=== PATIENT | female | born 1945 | race Native Hawaiian/Other Pacific Islander ===

== ENCOUNTER 2019-01-01 09:28 | Outpatient (CLI) | payer OTHER ==
[2019-01-01] MEDS ORDERED: LEVEMIR FL100 UNIT/M SC (10:43)
[2019-01-01] MEDS ORDERED: ENALAPRIL10 MG PO (10:43)
[2019-01-01] MEDS ORDERED: FLUTMIS2 INH (10:44)
[2019-01-01] MEDS ORDERED: GLIM4TAB PO (10:44)
[2019-01-01] MEDS ORDERED: PROAIR HFA INH (10:45)
[2019-01-01] MEDS ORDERED: FURO20TA67 PO (10:45)
[2019-01-01] MEDS ORDERED: ZIPR80CA PO (10:46)
[2019-01-01] MEDS ORDERED: SERT50TA PO (10:47)
[2019-01-01] MEDS ORDERED: TRAZODONE HYDRO50 MG PO (10:48)
[2019-01-01] MEDS ORDERED: BENZ1TAB43 PO (10:48)
[2019-01-01] MEDS ORDERED: PRED20TA27 PO (10:49)
[2019-01-01] MEDS ORDERED: VITAMIN PO (10:49)
== END 2019-01-01 09:31 | disposition short-term general hospital (02) ==
LOC: AMB 09:28
DX: R06.89 Other abnormalities of breathing (principal); R06.2 Wheezing
CPT/HCPCS: A0425; A0427

== ENCOUNTER 2019-01-01 09:34 | Inpatient (IN) | payer OTHER ==
[2019-01-01] VITALS (12 sets, daily range): BP systolic 125–172; BP diastolic 44–76; TEMP 98.1–98.9; Ht 154.9 cm; Wt 66.9 kg
[~2019-01-01] VITALS: Ht 154.9 cm; Wt 66.9 kg
[2019-01-01 10:02] LABS: PLATELET COUNT 223 K/uL (152-353)
[2019-01-01 10:11] LABS: POTASSIUM 4.4 mmol/L (3.6-5.2); SODIUM 140 mmol/L (136-145)
[2019-01-01] MEDS ORDERED: ENALAPRIL10 MG PO (10:43)
[2019-01-01] MEDS ORDERED: LEVEMIR FL100 UNIT/M SC (10:43)
[2019-01-01] MEDS ORDERED: GLIM4TAB PO (10:44)
[2019-01-01] MEDS ORDERED: FLUTMIS2 INH (10:44)
[2019-01-01] MEDS ORDERED: FURO20TA67 PO (10:45)
[2019-01-01] MEDS ORDERED: PROAIR HFA INH (10:45)
[2019-01-01] MEDS ORDERED: ZIPR80CA PO (10:46)
[2019-01-01] MEDS ORDERED: SERT50TA PO (10:47)
[2019-01-01] MEDS ORDERED: TRAZODONE HYDRO50 MG PO (10:48)
[2019-01-01] MEDS ORDERED: BENZ1TAB43 PO (10:48)
[2019-01-01] MEDS ORDERED: VITAMIN PO (10:49)
[2019-01-01] MEDS ORDERED: PRED20TA27 PO (10:49)
--- NOTE | 2019-01-01 14:58 | NUR ---
ERICK RIVERA CALLED AND PT'S HX OBTAINED OVER PHONE. [facility] [place] CALL[facility]. PT HAS MR AND MOOD DISORDER PER PERSON GIVING HX. PT AWAKE AND ALERT AT TIME OF ADMISSION FROM ER. PT ASSISTED TO BED FROM [facility]. PT NOTED TO BE AUDIBLE WHEEZING . DR FORD AT BS AT THIS TIME. PT BREATHING NOTED TO BE LABORED. SATS ON RA 96%. NEW ORDERS REC'D TO GIVE SOLUMEDROL 125MG IVP STAT. WILL CON'T TO [facility]
--- NOTE | 2019-01-01 21:00 | NUR ---
Pt was assisted to bsc and had large bowel movement. Pt has audible wheezing noted. O2 sat is checked and found to be 95% on room air. Respiratory has checked on pt and duonebs were administered. PRN Tylenol, 650 mg, po was also administered d/t pt stated "that she was hurting all over her body". Pt also stated that she was hot and perspiring, and her gown was saturated. Gown was changed and pt was wiped down with wet wipe. Bed is in low position, call light within reach, and bed alarm is on. Will continue to monitor.
--- NOTE | 2019-01-01 21:38 | NUR ---
2137- Pt still has audible wheezing and continous pulse ox on and O2 sat is 95 % on room air. Prn ativan 0.5 mg, po was given. 2229- Pt is resting quietly with eyes closed, in bed. No audible wheezing is noted at this time. No acute distress noted. Will continue to monitor.
[2019-01-02] VITALS (7 sets, daily range): BP systolic 108–150; BP diastolic 38–60; TEMP 97.6–98.8
[2019-01-02 05:38] LABS: PLATELET COUNT 192 K/uL (152-353)
[2019-01-02 05:53] LABS: POTASSIUM 4.8 mmol/L (3.6-5.2)
[2019-01-03] VITALS: BP 114/51; TEMP 97.7
[2019-01-03 04:00] VITALS: BP 147/47; TEMP 98.1
[2019-01-03 04:23] LABS: PLATELET COUNT 190 K/uL (152-353)
[2019-01-03 04:29] LABS: POTASSIUM 4.4 mmol/L (3.6-5.2)
[2019-01-03 08:00] VITALS: BP 147/58; TEMP 98.2
[2019-01-03 08:23] VITALS: BP 147/58; TEMP 98.2
[2019-01-03 12:00] VITALS: BP 143/51; TEMP 97.6
--- NOTE | 2019-01-03 15:09 | NUR ---
PATIENT REASSES BY DR Abdullahi BARKER. SHE ORDERED BOLIS 0.9% NORMAL SALENE AT 500 ML/HR. [facility] HAS BEEN NOTFIED AND WILL COME FOR NON-EMERGENT TRANSFER AT 1700.
--- NOTE | 2019-01-03 15:21 | NUR ---
CALLED [facility] AND SPOKE TO TASNEEM BROWNE AT [phone]. SHE STATED THEY DO NOT TAKE REPORT AND TO JUST SENT HER DISCHARGE PAPERS. I ALSO CALLED HER PHARMACY, [facility] IN [place], [place]. DR NICK BARKER ORDERED PREDNASONE 20 MG PO BID FOR THREE DAYS.
--- NOTE | 2019-01-03 15:54 | NUR ---
PATIENTS PHARMACY WAS CALLED AND PREDNSONE CALLED IN
--- NOTE | 2019-01-03 16:01 | NUR ---
PATIENT UNABLE TO SIGN DISCHARGE PAPERWORK. SENT TO [facility]
--- NOTE | 2019-01-03 18:23 | NUR ---
PATIENT WAS PICKED UP BY THE [facility].
--- NOTE | 2019-01-03 18:23 | NUR ---
PATIENTS IV WAS REMOVED AND THE [facility] TIP IS INTACT. SITE IS CLEAN DRY AND IMPACT
== END 2019-01-03 18:15 | DRG 203 ==
LOC: ED 09:34 → MED/SURG 12:56
PROVIDERS: Internal Medicine; ADMIT Emergency Medicine
DX: J45.901 Unspecified asthma with (acute) exacerbation (principal); R09.02 Hypoxemia; E11.9 Type 2 diabetes mellitus without complications; Z79.4 Long term (current) use of insulin; G31.84 Mild cognitive impairment of uncertain or unknown etiology; F39 Unspecified mood [affective] disorder; I10 Essential (primary) hypertension; Z79.01 Long term (current) use of anticoagulants
CPT/HCPCS: 36415; 36600; 80048; 80053; 82550; 82553; 82805; 83880; 84484; 85027; 85379; 87502; 87651; 93005; 94640; 94664; 94668; 94760; 96365; 96366; 96374; 96375; 99284; J0456; J0515; J0696; J1650; J1815; J1940; J1956; J2060; J2920; J2930